=== PATIENT | male | born 2005 | race Caucasian/White ===

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

== ENCOUNTER → 2024-07-23 | Outpatient (CLI) | payer BC, SELFPAY ==
--- NOTE | 2024-07-23 09:28 | RAD_ITS ---
EXAM: XR RIGHT KNEE COMPLETE, 4 OR MORE VIEWS CLINICAL INDICATION: PAIN/ CONTUSION OF KNEE TECHNIQUE: Four or more views of the right knee. COMPARISON: No relevant prior studies available. FINDINGS: BONES/JOINTS: No acute fracture, subluxation or joint effusion. SOFT TISSUES: Normal. No soft tissue swelling or gas. No radiopaque foreign body. RAD/Knee 4 or More Views IMPRESSION: Intact right knee. Electronically Signed: Adan Cameron MD at 10:28 EST ,
== END | disposition home or self-care (01) ==
LOC: MTRAD 09:27
PROVIDERS: PCP Family Medicine; Referring Provider Nurse Practitioner Family; Visit Provider Nurse Practitioner Family
DX: S80.01XA Contusion of right knee, initial encounter (principal)
CPT/HCPCS: 73564

== ENCOUNTER → 2025-02-25 | Outpatient (CLI) | payer BC, SELFPAY ==
[2025-03-02 07:06] LABS: KEPPRA (LEVETIRACETAM) 6.5 ug/mL (10.0-40.0)
== END | disposition home or self-care (01) ==
LOC: MTLAB 16:22
PROVIDERS: PCP Family Medicine; Referring Provider Family Medicine; Visit Provider Family Medicine
DX: G40.909 Epilepsy, unspecified, not intractable, without status epilepticus (principal); Z83.49 Family history of other endocrine, nutritional and metabolic diseases
CPT/HCPCS: 36415; 80177; 84439; 84443

== ENCOUNTER → 2025-04-18 | Outpatient (CLI) | payer BC, SELFPAY ==
[2025-04-18 17:47] LABS: Hematocrit 45.9 % (40-54); Hemoglobin 15.5 g/dL (13.0-16.5); Immature Granulocytes Count 0.050 X10^3/uL (0.0-0.0); Mean Corp Hgb Conc 33.8 g/dL (32-36); Mean Corpuscular Volume 89.1 fL (80-94); Mean Platelet Vol. 10.5 fl (6.2-12.0); NRBC Flagged by Analyzer 0 % (0-5); Platelet Count 248 K/mm3 (150-450); RBC Distribution Width CV 12.0 % (11.6-14.6); RBC Distribution Width SD 39.1 fl (35.1-43.9); Red Blood Count 5.15 M/mm3 (4.6-6.2); White Blood Count 12.5 K/mm3 (4.4-11.0)
--- OUTSIDE RECORDS SUMMARY | 2025-04-18 18:16 | XMS RPT_ITS | CCD ---
Author Organization [facility] ion [facility] Care Team Providers Care Braided Rug Maker Name Role Phone Gerard Gonzalez Unavailable Shahzad Arce Unavailable Unavailable ZIA ESPINOZA Referring Unavailable GERARD GONZALEZ Primary Care Unavailable GERARD GONZALEZ Attending Unavailable Dr. Gerard Gonzalez Primary Care Unavaila Zia Durbin Referring Unavailable Dr. Terrence Carver Attending Unav ailable Gerard Gonzalez MD Primary Care Provider GERARD GONZALEZ Primary Care Unavailable ÁLVARO CASTILLO Attending Unavailable Unavailable Primary Care Provider UnavailChantal Stevenson MD Primary Care Provider [phone] [id number] DANIEL NOLASCO Attending Unavailable DANIEL NOLASCO Referring Unavailable DANIEL NOLASCO Attending Unavailable Dr. Chantal Ball MD Primary Care Provider Dr. Demarco Jimenez DO Attending Provider Dr. Demarco Jimenez DO Referring Provider [phone] Mary Jane Daigle Attending Unavailable Mary Jane Daigle Referring Unavailable Cahntal Ball Primary Care Unavailable Chantal Ball Primary Care Unavailable Demarco Jimenez Attending Unavailable Demarco Jimenez Referring Unavailable Allergies Allergy Classification Reported Allergen(s) Allergy Type Date of Onset Reaction(s) Facility Penicillins (antibiotic) (1 source) Penicillin Drug Allergy Other [facility] (6 sources) Penicillins; Translations: [PENICILLINS] Allergy to substance 2 [facility] (1 source) Penicillins Propensity to adverse reactions 3 [facility] (3 sources) Penicillins Drug Allergy 4 Itching, Rash [facility] (1 source) Penicillins Drug allergy (disorder) 2 [facility] Repository Medications Current Medications Medication Drug Class(es) Dates Sig (Normalized) Sig (Original) levETIRAcetam 500 mg oral tablet (4 sources) Start: 09-12-2023 End: 09-06-2024 take 1 tablet by mouth in the morning levETIRAcetam (Keppra) 500 MG tablet Indications: Partial symptomatic epilepsy with complex partial seizures, not intractable, without status epilepticus (CMS/HCC) Take 1 tablet (500 mg) by mouth in the morning and 1 tablet (500 mg) before bedtime. 180 tablet 3 09/12/2023 09/06/2024 Active take 1 tablet by mouth twice jimmy ly levETIRAcetam (Keppra) 500 mg tablet Take 1 tablet (500 mg) by mouth 2 times a day. 0 Active vitamin b12 0.5 mg oral tablet (1 source) Vitamin B12 take 1 tablet by mouth once daily in the morning cyanocobalamin (Vitamin B-12) 500 mcg tablet Take 1 tablet (500 mcg) by mouth once daily in the morning. 0 Active Completed/Discontinued Medications Medication Drug Class(es) Dates Sig (Normalized) Sig (Original) iohexol (OMNIPaque) 350 mg iodine/mL solution 69 mL (1 source) Start: 07-11-2023 End: 07-11-2023 iohexol (OMNIPaque) 350 mg iodine/mL solution 69 mL 1000 ml sodium chloride 9 mg/ml injection (1 source) Start: 07-11-2023 End: 07-11-2023 sodium chloride 0.9 % bolus 1,000 mL NEGATED: Highlighted row has not occurred!No Current Medications (1 source) No Current Medications Problems Active Problems Problem Classification Problem Date Documented Da te Episodic/Chronic Epilepsy; convulsions (6 sources) Partial epilepsy with impairment of consciousness; Translations: [Localization-relat ed (focal) (partial) symptomatic epilepsy and epileptic syndromes with complex partial seizures, not intractable, without status epilepticus] Onset: 07-05-2023 07-05-2023 Chronic Epilepsy; convulsions (2 sources) Unspecified convulsions; Translations: [Unspecified convulsions] Onset: 04-29-2022 Episodic Other lower respiratory disease (1 source) Nodule of lung; Translations: [Solitary pulmonary nodule] 07-11-2023 Episodic Residual codes; unclassified (2 sources) Obstructive sleep apnea (adult) (pediatric); Translations: [Obstructive sleep apnea (adult) (pediatric)] Onset: 06-01-2022 Chronic Residual codes; unclassified (5 sources) Transient alteration of awareness; Translations: [Transient alteration of awareness] 05-03-2022 Episodic Unclassified (2 sources) SPORT PHYSICAL 03-08-2021 Comment on above: SPORT PHYSICAL Past or Other Problems Problem Classification Problem Date Documented Da te Episodic/Chronic Other lower respiratory disease (2 sources) Solitary pulmonary nodule; Translations: [Solitary pulmonary nodule] Onset: 07-11-2023 Episodic Superficial injury; contusion (9 sources) Abrasion of lip, initial encounter; Translations: [Abrasion of lip] Onset: 07-11-2023 05-03-2022 Episodic Syncope (3 sources) Syncope and collapse; Translations: [Syncope and collapse] Onset: 07-11-2023 07-11-2023 Episodic Results Test Name Value Interpretation Reference Range Facility KEPPRA (LEVETIRACETAM)on KEPPRA 6.5 ug/mL Abnormal 10.0-40.0 [facility] Comment on above: Result Comment: Perf ormed at: - [facility] [address] [id number] Experience Specialist: Hardeep La MD, Phone: [phone] Performed By: #### L [id number], L3310.0000, L506.0400 #### [facility] [address] [place], [place] [address], [place], [address] LevetiracetamOrdered By: Jackie Jimenez on 02-25-2025 levETIRAcetam [Mass/Vol] 6.5 ug/mL Low 10.0-40.0 [facility] Comment on above: Performed at: BN - [facility] [address] [id number] Director: Hardeep La MD, Phone: [phone] T4 Free Directon 02-25-2025 T4 FREE DIRECT 1.20 ng/dL Normal 0.76-1.46 [facility] Comment on above: Performed By: #### L 501.9520, L3310.0000, L506.0400 #### [facility] [address] [place], [address] T4 freeOrdered By: Demarco craft on 02-25-2025 Free T4 [Mass/Vol] 1.20 ng/dL 0.76-1.46 [facility] TSH DL <= 0.005 mIU/L QnOrde red By: Demarco Jimenez on 02-25-2025 TSH Qn 1.290 uIU/mL 0.300-4.200 [facility] Thyroid Stim Hormone (TSH)on 02-25-2025 TSH 1.290 uIU/mL Normal 0.300-4.200 [facility] Comment on above: Performed By: #### L 501.9520, L3310.0000, L506.0400 #### [facility] [address] [facility] [place], [address] Knee 4 or More Viewson 07-23 Knee 4 or More Views [facility] Services [address] [place] [address] Knee 4 or More Views MR#: [id number] Acct: [id number] Name: HUBERT DONNELLY Rep #: [id number] : 2005 M 19 From: Adan Cameron MD PCP: Dr. Chantal Ball MD Status: REG CLI Study: Knee 4 or More Views Date of Exam: 07/23/24 Exam# [id number] Ordering Dr: Mary Jane Daigle FIBER ANALYST- Jania [id number] EXAM: XR RIGHT KNEE COMPLETE, 4 OR MORE VIEWS CLINICAL INDICATION: PAIN/ CONTUSION OF KNEE TECHNIQUE: Four or more views of the right knee. COMPARISON: No relevant prior studies available. FINDINGS: BONES/JOINTS: No acute fracture, subluxation or joint effusion. SOFT TISSUES: Normal. No soft tissue swelling or gas. No radiopaque foreign body. RAD/Knee 4 or More Views IMPRESSION: Intact right knee. Electronically Signed: Adan Cameron MD at 10:28 EST , CC: PRATIMA Daigle; Dr. Chantal Ball MD Bench Examiner: Signed Normal [facility] Absolute lymphocyte countOrd ered By: Lilian Harsh on 08-11-2023 Lymphocytes Auto (Unsp spec) [#/Vol] 2.58 10*3/uL 0.83-4.51 [facility] Basophil percentageOrdered B y: Liliankindra House on 08-11-2023 Basophils/100 WBC (Bld) 0.6 % 0-1 [facility] Bilirubin [Mass/Vol] 0.40 mg/dL 0.20-1.[address] [facility] Comment on above: For patients on eltr ombopag therapy, use of Dimension [place] TBIL is not recommended. Chloride [Moles/Vol] 109 mmol/L 98-[address] [facility] Eosinophils/100 WBC (Bld) 3.3 % 0-5 [facility] Glucose [Mass/Vol] 84 mg/dL 74-106 [facility] Neutrophils (Bld) [#/Vol] 9.4 10*3/uL 2.0-7.7 [facility] Neutrophils/100 WBC (Bld) 68.4 % 47-70 [facility] Potassium [Moles/Vol] 4.2 mmol/L 3.5-5.1 [facility] Protein [Mass/Vol] 7.9 g/dL 6.4-8.2 [facility] Sodium [Moles/Vol] 140 mmol/L 136-145 [facility] WBC (Bld) [#/Vol] 13.7 10*3/uL 4.4-11.0 [facility] Blood erythrocytes count (nu mber/volume)Ordered By: Lilian House on 08-11-2023 RBC (Bld) [#/Vol] 5.03 10*6/uL 4.6-6.2 [facility] Blood hemoglobin measurement (mass/volume)Ordered By: Liliankindra House on 08-11-2023 Hemoglobin (Bld) [Mass/Vol] 14.9 g/dL 13.0-16.5 [facility] Blood lymphocytes/100 leukoc ytesOrdered By: Liliankindra House on 08-11-2023 Lymphocytes/100 WBC (Bld) 18.9 % 19-41 [facility] Blood monocytes/100 leukocyt esOrdered By: Pepperell Harsh on 08-11-2023 Monocytes/100 WBC (Bld) 8.4 % 0-10 [facility] Blood platelet mean volumeOr dered By: Liliankindra House on 08-11-2023 Platelet mean volume (Bld) [Entitic vol] 11.3 fL 6.2-12.0 [facility] Determination of erythrocyte mean corpuscular volume (MCV)Ordered By: Liliankindra House on 08-11-2023 MCV (RBC) [Entitic vol] 92.0 fL 80-94 [facility] Hematocrit Auto (Bld) [Volum e fraction]Ordered By: Pepperell Harsh on 08-11-2023 Hematocrit (Bld) [Volume fraction] 46.3 % 40-54 [facility] Laboratory - Chemistry and C hemistry - challengeOrdered By: Pepperell Harsh on 08-11-2023 ALP [Catalytic activity/Vol] 115 U/L 45-117 [facility] ALT [Catalytic activity/Vol] 31 U/L 16-61 [facility] CO2 [Moles/Vol] 27.0 mmol/L 21.0-32.0 [facility] Free T4 [Mass/Vol] 1.05 ng/dL 0.76-1.46 [facility] Globulin (S) [Mass/Vol] 4.3 g/dL 2.2-4.2 [facility] Urea nitrogen/Creatinine [Mass ratio] 15.1 mg/mg 10-20 [facility] Laboratory - Hematology and Cell countsOrdered By: Pepperell Harsh on 08-11-2023 Erythrocyte distribution width (RBC) [Entitic vol] 42.8 fL 35.1-43.9 [facility] Erythrocyte distribution width (RBC) [Ratio] 12.7 % 11.6-14.6 [facility] Immature granulocytes/100 WBC (Bld) 0.400 % 0.0-0.9 [facility] Comment on above: IG% - Immature Granu locytes (promyelocytes, myelocytes and metamyelocytes) > 1% indicates that a LEFT SHIFT is Present. MCH (RBC) [Entitic mass] 29.6 pg 27.0-32.0 [facility] Nucleated RBC/100 WBC (Bld) [Ratio] 0 % 0-5 [facility] MCHC Auto (RBC) [Mass/Vol]Or dered By: Lilian House on 08-11-2023 MCHC (RBC) [Mass/Vol] 32.2 g/dL 32-36 [facility] No Panel InformationOrdered By: Lilian House on 08-11-2023 Estimated GFR (MDRD) Amer 94 mL/min >60 [facility] Comment on above: GFR Calc Estimated GFR (MDRD) Non-Af Amer 78 mL/min >60 [facility] Comment on above: Non- GFR Calc Thyroid Stimulating Hormone (TSH) 1.71 uIU/mL 0.358-3.74 [facility] Platelets bldOrdered By: Navdeep House on 08-11-2023 Platelets (Bld) [#/Vol] 228 10*3/uL 150-450 [facility] Serum or plasma albumin brandon urement (mass/volume)Ordered By: Lilian House on 08-11-2023 Albumin [Mass/Vol] 3.6 g/dL 3.2-5.0 [facility] Serum or plasma albumin/glob ulin mass ratioOrdered By: Lilian House on 08-11-2023 Albumin/Globulin [Mass ratio] 0.8 {ratio} 0.9-2.4 [facility] Serum or plasma calcium brandon urement (mass/volume)Ordered By: Lilian House on 08-11-2023 Calcium [Mass/Vol] 9.0 mg/dL 8.5-10.1 [facility] Serum or plasma creatinine m easurement (mass/volume)Ordered By: Lilian House on 08-11-2023 Creatinine [Mass/Vol] 1.26 mg/dL 0.70-1.30 [facility] Comment on above: The validity of the calculated GFR & GFRAA in patients over 70 years has not been determined. Clinical correlation is essential. Serum or plasma urea nitroge n measurement (mass/volume)Ordered By: Lilian House on 08-11-2023 Urea nitrogen [Mass/Vol] 19 mg/dL 7-18 [facility] Thin prep Papanicolaou smear with manual screeningOrdered By: Lilian House on 08-11-2023 Thin prep Papanicolaou smear with manual screening 18 U/L 15-37 [facility] Thin prep Papanicolaou smear with manual screening 4 5-15 [facility] Basic metabolic 2000 panelon 07-11-2023 Anion gap [Moles/Vol] 12 mmol/L 10 - 2 0 mmol/L [facility] Calcium [Mass/Vol] 9.2 mg/dL 8.6 - 10. 3 mg/dL [facility] Chloride [Moles/Vol] 107 mmol/L 98 - 10 7 mmol/L [facility] CO2 [Moles/Vol] 23 mmol/L 21 - 32 mmol/L [facility] Creatinine [Mass/Vol] 1.08 mg/dL 0.50 - 1.30 mg/dL [facility] GFR/1.73 sq M.predicted MDRD (S/P/Bld) [Vol rate/Area] - PINF [facility] Comment on above: Calculations of danielle mated GFR are performed using the 2020 CKD-EPI Study Refit equation without the race variable for the IDMS-Traceable creatinine methods. https://jasn.asnjournals.org/content///ASN.616 1423232 Glucose [Mass/Vol] 99 mg/dL 74 - 99 mg/dL [facility] Interpretation and review of laboratory results Normal [facility] Potassium [Moles/Vol] 4.6 mmol/L 3.5 - 5.3 mmol/L [facility] Sodium [Moles/Vol] 137 mmol/L 136 - 145 mmol/L [facility] Urea nitrogen [Mass/Vol] 14 mg/dL 6 - 23 mg/d L [facility] Anion gap [Moles/Vol] 12 mmol/L Normal 10-20 [facility] Comment on above: Performed By: #### 2 4321-2 #### EUGENE CRUZ (35355) [facility] ([facility]) [facility] [place] [address] Calcium [Mass/Vol] 9.2 mg/dL Normal 8.6-10.3 [facility] Comment on above: Performed By: #### 2 4321-2 #### EUGENE CRUZ (71179) [facility] ([facility]) [address] [place] [address] Chloride [Moles/Vol] 107 mmol/L Normal 98-107 [facility] Comment on above: Performed By: #### 2 4321-2 #### EUGENE CRUZ (81885) [facility] ([facility]) [address] [place] [address] CO2 [Moles/Vol] 23 mmol/L Normal 21-32 [facility] Comment on above: Performed By: #### 2 4321-2 #### EUGENE CRUZ (19863) [facility] ([facility]) [address] [place] [address] Creatinine [Mass/Vol] 1.08 mg/dL Normal 0.50-1.30 [facility] Comment on above: Performed By: #### 2 4321-2 #### EUGENE CRUZ (37335) [facility] ([facility]) [address] [place] [address] GFR/1.73 sq M.predicted MDRD (S/P/Bld) [Vol rate/Area] mL/min/{1.73_m2} Normal >60 [facility] Comment on above: Result Comment: Calc ulations of estimated GFR are performed using the 2020 CKD-EPI Study Refit equation without the race variable for the IDMS-Traceable creatinine methods. https://jasn.asnjournals.org/content//ASN.628 3888248 Performed By: #### 2 4321-2 #### EUGENE CRUZ (56957) [facility] ([facility]) [address] [place] [address] Glucose [Mass/Vol] 99 mg/dL Normal 74-99 [facility] Comment on above: Performed By: #### 2 4321-2 #### EUGENE CRUZ (51499) [facility] ([facility]) [address] [place] [address]83 Potassium [Moles/Vol] 4.6 mmol/L Normal 3.5-5.3 [facility] Comment on above: Performed By: #### 2 4321-2 #### EUGENE CRUZ (76204) [facility] ([facility]) [address] [place], [place] [address] Sodium [Moles/Vol] 137 mmol/L Normal 136-145 [facility] Comment on above: Performed By: #### 2 4321-2 #### EUGENE CRUZ (77582) [facility] ([facility]) [address] [place] [address]67[address] Urea nitrogen [Mass/Vol] 14 mg/dL Normal 6-23 [facility] Comment on above: Performed By: #### 2 4321-2 #### EUGENE CRUZ (11754) [facility] ([facility]) [address] [place] [address]95 CBC W Auto Differential pane l (Bld)on 07-11-2023 Basophils (Bld) [#/Vol] 0.04 10*3/uL [facility] Basophils/100 WBC (Bld) 0.3 % 0.0 - 2.0 % [facility] Eosinophils (Bld) [#/Vol] 0.18 10*3/uL [facility] Eosinophils/100 WBC (Bld) 1.2 % 0.0 - 6.0 % [facility] Erythrocyte distribution width (RBC) [Ratio] 12.2 % 11.5 - 14.5 % [facility] Hematocrit (Bld) [Volume fraction] 45.3 % 41.0 - 52.0 % [facility] Hemoglobin (Bld) [Mass/Vol] 15.3 g/dL 13.5 - 17.5 g/dL [facility] Immature granulocytes (Bld) [#/Vol] 0.04 10*3/uL [facility] Immature granulocytes/100 WBC (Bld) 0.3 % 0.0 - 0.9 % [facility] Comment on above: Immature Granulocyte Count (IG) includes promyelocytes, myelocytes and metamyelocytes but does not include bands. Percent differential counts (%) should be interpreted in the context of the absolute cell counts (cells/UL). Interpretation and review of laboratory results Abnormal [facility] Lymphocytes (Bld) [#/Vol] 1.16 10*3/uL Low [facility] Lymphocytes/100 WBC (Bld) 7.7 % 13.0 - 44.0 % [facility] MCH (RBC) [Entitic mass] 30.1 pg 26. 0 - 34.0 pg [facility] MCHC (RBC) [Mass/Vol] 33.8 g/dL 32.0 - 36.0 g/dL [facility] MCV (RBC) [Entitic vol] 89 fL 80 - 100 fL [facility] Monocytes (Bld) [#/Vol] 0.92 10*3/uL [facility] Monocytes/100 WBC (Bld) 6.1 % 2.0 - 10.0 % [facility] Neutrophils (Bld) [#/Vol] 12.68 10*3/uL High [facility] Comment on above: Percent differential counts (%) should be interpreted in the context of the absolute cell counts (cells/uL). Neutrophils/100 WBC (Bld) 84.4 % 40.0 - 80.0 % [facility] Nucleated RBC/100 WBC (Bld) [Ratio] 0.0 % [facility] Platelets (Bld) [#/Vol] 183 10*3/uL [facility] RBC (Bld) [#/Vol] 5.08 10*6/uL Un[facility] WBC (Bld) [#/Vol] 15.0 10*3/uL High [facility] Basophils (Bld) [#/Vol] 0.04 x10*3/uL Normal 0.00-0.10 [facility] Comment on above: Performed By: #### 5 7021-8 #### EUGENE CRUZ (42857) [facility] ([facility]) [address] [place] [address]22 Basophils/100 WBC (Bld) 0.3 % Normal 0.0-2.0 [facility] Comment on above: Performed By: #### 5 7021-8 #### EUGENE CRUZ (35533) [facility] ([facility]) [address] [place] [address] 16975 Eosinophils (Bld) [#/Vol] 0.18 x10*3/uL Normal 0.00-0.70 [facility] Comment on above: Performed By: #### 5 7021-8 #### EUGENE CRUZ (44139) [facility] ([facility]) [address] [place] [address] 80690 Eosinophils/100 WBC (Bld) 1.2 % Normal 0.0-6.0 [facility] Comment on above: Performed By: #### 7021-8 #### EUGENE CRUZ (61441) [facility] ([facility]) [address] [place] [address]29 Erythrocyte distribution width (RBC) [Ratio] 12.2 % Normal 11.5-14.5 [facility] Comment on above: Performed By: #### 5 7021-8 #### EUGENE CRUZ (24478) [facility] ([facility]) [address] [place] [address]378 Hematocrit (Bld) [Volume fraction] 45.3 % Normal 41.0-52.0 [facility] Comment on above: Performed By: #### 5 7021-8 #### EUGENE CRUZ (23025) [facility] ([facility]) [address] [place] [address] 79649 Hemoglobin (Bld) [Mass/Vol] 15.3 g/dL Normal 13.5-17.5 [facility] Comment on above: Performed By: #### 7021-8 #### EUGENE CRUZ (47400) [facility] ([facility]) [address] [place] [address] 08997 Immature granulocytes (Bld) [#/Vol] 0.04 x10*3/uL Normal 0.00-0.70 [facility] Comment on above: Performed By: #### 5 7021-8 #### EUGENE CRUZ (57982) [facility] ([facility]) [address] [place] [address]87 Immature granulocytes/100 WBC (Bld) 0.3 % Normal 0.0-0.9 [facility] Comment on above: Result Comment: Amairani ture Granulocyte Count (IG) includes promyelocytes, myelocytes and metamyelocytes but does not include bands. Percent differential counts (%) should be interpreted in the context of the absolute cell counts (cells/UL). Performed By: #### 5 7021-8 #### EUGENE CRUZ (93048) [facility] ([facility]) [address] [place] [address]654 Lymphocytes (Bld) [#/Vol] 1.16 x10*3/uL Low 1.20-4.80 [facility] Comment on above: Performed By: #### 5 7021-8 #### EUGENE CRUZ (97197) [facility] ([facility]) [address] [place] [address] 07137 Lymphocytes/100 WBC (Bld) 7.7 % Normal 13.0-44.0 [facility] Comment on above: Performed By: #### 5 7021-8 #### EUGENE CRUZ (80910) [facility] ([facility]) [address] [place] [address] 87580 MCH (RBC) [Entitic mass] 30.1 pg Normal 26.0-34.0 [facility] Comment on above: Performed By: #### 5 7021-8 #### EUGENE CRUZ (52543) [facility] ([facility]) [address] [place] [address] 63328 MCHC (RBC) [Mass/Vol] 33.8 g/dL Normal 32.0-36.0 [facility] Comment on above: Performed By: #### 5 7021-8 #### EUGENE CRUZ (41466) [facility] ([facility]) [address] [place] [address] 93452 MCV (RBC) [Entitic vol] 89 fL Normal 80-100 [facility] Comment on above: Performed By: #### 5 7021-8 #### EUGENE CRUZ (47956) [facility] ([facility]) [address] [place] [address] 20494 Monocytes (Bld) [#/Vol] 0.92 x10*3/uL Normal 0.10-1.00 [facility] Comment on above: Performed By: #### 5 7021-8 #### EUGENE CRUZ (18182) [facility] ([facility]) [address] [place] [address] 22238 Monocytes/100 WBC (Bld) 6.1 % Normal 2.0-10.0 [facility] Comment on above: Performed By: #### 5 7021-8 #### EUGENE CRUZ (37203) [facility] ([facility]) [address] [place] [address] 70152 Neutrophils (Bld) [#/Vol] 12.68 x10*3/uL High 1.20-7.70 [facility] Comment on above: Result Comment: Perc ent differential counts (%) should be interpreted in the context of the absolute cell counts (cells/uL). Performed By: #### 5 7021-8 #### EUGENE CRUZ (65183) [facility] ([facility]) [address] [place] [address] 69458 Neutrophils/100 WBC (Bld) 84.4 % Normal 40.0-80.0 [facility] Comment on above: Performed By: #### 5 7021-8 #### EUGENE CRUZ (40593) [facility] ([facility]) [address] [place] [address] 96775 Nucleated RBC/100 WBC (Bld) [Ratio] 0.0 /100 WBCs Normal 0.0-0.0 [facility] Comment on above: Performed By: #### 5 7021-8 #### EUGENE CRUZ (82595) [facility] ([facility]) [address] [place] [address] Platelets (Bld) [#/Vol] 183 x10*3/uL Normal 150-450 [facility] Comment on above: Performed By: #### 5 7021-8 #### EUGENE CRUZ (18018) [facility] ([facility]) [address] [place] [address] RBC (Bld) [#/Vol] 5.08 x10*6/uL Normal 4.50-5.90 [facility] Comment on above: Performed By: #### 5 7021-8 #### EUGENE CRUZ ([id number]) [facility] ([facility]) [address] [place] [address] WBC (Bld) [#/Vol] 15.0 x10*3/uL High 4.4-11.3 [facility] Comment on above: Performed By: #### 5 7021-8 #### EUGENE CRUZ ([id number]) [facility] ([facility]) [address] [place] [address] CT ANGIO CHEST FOR PULMONARY EMBOLISMon 07-11-2023 CT ANGIO CHEST FOR PULMONARY EMBOLISM Interpreted By: Randy Lockwood, STUDY: CT ANGIO CHEST FOR PULMONARY EMBOLISM; 07/11/2023 10:50 am INDICATION: Signs/Symptoms:synco pe/tachycardia. COMPARISON: None. ACCESSION NUMBER(S): [id number] ORDERING CLINICIAN: ÁLVARO CASTILLO TECHNIQUE: Helical data acquisition of the chest was obtained after IV injection of 69 ml of Omnipaque 350. Images were reformatted in axial, coronal, and sagittal planes. 3D reconstructed MIPS volumetric images were also generated at an independent workstation and reviewed. FINDINGS: POTENTIAL LIMITATIONS OF THE STUDY: None HEART AND VESSELS: No discrete filling defects within the main pulmonary artery or its branches. The thoracic aorta is of normal course and caliber without aneurysm, dissection or significant atherosclerotic calcification. No coronary artery calcifications are seen. The study is not optimized for evaluation of coronary arteries. The cardiac chambers are not enlarged. MEDIASTINUM AND FUNMILAYO, LOWER NECK AND AXILLA: The visualized thyroid gland is within normal limits, the esophagus appears unremarkable. No evidence of thoracic lymphadenopathy by CT criteria. LUNGS AND AIRWAYS: A 4 mm right perifissural nodule on image 60 of series 4 is probably an intrapulmonary node. No further follow-up is required, however, if the patient has high risk factors for primary lung malignancy, follow-up noncontrast CT scan chest in 12 months may be obtained. (Scar Dozier et al., Guidelines for management of incidental pulmonary nodules detected on CT images: From the Fleischner Society 2017, Radiology. 2017 Jj;284 (1):228-243.) FLEISCHNER.ACR.IF.1. The lungs otherwise are clear. No pleural effusion. UPPER ABDOMEN AND OTHER FINDINGS: The visualized subdiaphragmatic structures demonstrate no remarkable findings. CHEST WALL AND OSSEOUS STRUCTURES: There are no suspicious osseous lesions. IMPRESSION: 1. No evidence of pulmonary embolus, aneurysm or dissection. 2. Right perifissural nodule as described. The lungs otherwise are clear. Signed by: Randy Lockwood 07/11/2023 11:31 AM Dictation workstation: [id number] [facility] CT CERVICAL SPINE WO IV CONT RASTon 07-11-2023 CT CERVICAL SPINE WO IV CONTRAST Interpreted By: Kurtis Paz, STUDY: CT CERVICAL SPINE WO IV CONTRAST; 07/11/2023 10:50 am INDICATION: Signs/Symptoms:traum a. Pain COMPARISON: None. ACCESSION NUMBER(S): [id number] ORDERING CLINICIAN: ÁLVARO CASTILLO TECHNIQUE: Axial CT images of the cervical spine are obtained. Axial, coronal and sagittal reconstructions are provided for review. FINDINGS: There is no acute fracture or traumatic subluxation in the cervical spine. Subacute to old nondisplaced fracture at the tip of the spinous process of T1 is seen. Prevertebral soft tissues are unremarkable. There is no apical pneumothorax. IMPRESSION: No evidence for an acute fracture or subluxation of the cervical spine. MACRO: None Signed by: Kurtis Paz 07/11/2023 11:45 AM Dictation workstation: [id number] [facility] CT Cervical spine WO contras ton 07-11-2023 No evidence for an acute fracture or subluxation of the cervical spine. MACRO: None Signed by: Kurtis Paz 07/11/2023 11:45 AM Dictation workstation: [id number] Interpreted By: Kurtis Paz, STUDY: CT CERVICAL SPINE WO IV CONTRAST; 07/11/2023 10:50 am INDICATION: Signs/Symptoms:traum a. Pain COMPARISON: None. ACCESSION NUMBER(S): [id number] ORDERING CLINICIAN: ÁLVARO CASTILLO TECHNIQUE: Axial CT images of the cervical spine are obtained. Axial, coronal and sagittal reconstructions are provided for review. FINDINGS: There is no acute fracture or traumatic subluxation in the cervical spine. Subacute to old nondisplaced fracture at the tip of the spinous process of T1 is seen. Prevertebral soft tissues are unremarkable. There is no apical pneumothorax. MMKurtis Dykes MD - 07/11/2023 Interpreted By: Kurtis Paz, STUDY: CT CERVICAL SPINE WO IV CONTRAST; 07/11/2023 10:50 am INDICATION: Signs/Symptoms:traum a. Pain COMPARISON: None. ACCESSION NUMBER(S): [id number] ORDERING CLINICIAN: ÁLVARO CASTILLO TECHNIQUE: Axial CT images of the cervical spine are obtained. Axial, coronal and sagittal reconstructions are provided for review. FINDINGS: There is no acute fracture or traumatic subluxation in the cervical spine. Subacute to old nondisplaced fracture at the tip of the spinous process of T1 is seen. Prevertebral soft tissues are unremarkable. There is no apical pneumothorax. IMPRESSION: No evidence for an acute fracture or subluxation of the cervical spine. MACRO: None Signed by: Kurtis Paz 07/11/2023 11:45 AM Dictation workstation: [id number] [facility] Work Phone: CT Cervical spine WO contras tOrdered By: Kurtis Paz on 07-11-2023 [facility] Work Phone: CT Chest W contrast IV and C T angiogram Pulmonary arteries for pulmonary embolus W contrast Diana 07-11-2023 1. No evidence of pulmonary embolus, aneurysm or dissection. 2. Right perifissural nodule as described. The lungs otherwise are clear. Signed by: Randy Lockwood 07/11/2023 11:31 AM Dictation workstation: [id number] [facility] Interpreted By: Randy Lockwood, STUDY: CT ANGIO CHEST FOR PULMONARY EMBOLISM; 07/11/2023 10:50 am INDICATION: Signs/Symptoms:synco pe/tachycardia. COMPARISON: None. ACCESSION NUMBER(S): [id number] ORDERING CLINICIAN: ÁLVARO CASTILLO TECHNIQUE: Helical data acquisition of the chest was obtained after IV injection of 69 ml of Omnipaque 350. Images were reformatted in axial, coronal, and sagittal planes. 3D reconstructed MIPS volumetric images were also generated at an independent workstation and reviewed. FINDINGS: POTENTIAL LIMITATIONS OF THE STUDY: None HEART AND VESSELS: No discrete filling defects within the main pulmonary artery or its branches. The thoracic aorta is of normal course and caliber without aneurysm, dissection or significant atherosclerotic calcification. No coronary artery calcifications are seen. The study is not optimized for evaluation of coronary arteries. The cardiac chambers are not enlarged. MEDIASTINUM AND FUNMILAYO, LOWER NECK AND AXILLA: The visualized thyroid gland is within normal limits, the esophagus appears unremarkable. No evidence of thoracic lymphadenopathy by CT criteria. LUNGS AND AIRWAYS: A 4 mm right perifissural nodule on image 60 of series 4 is probably an intrapulmonary node. No further follow-up is required, however, if the patient has high risk factors for primary lung malignancy, follow-up noncontrast CT scan chest in 12 months may be obtained. (Scar MacMahon et al., Guidelines for management of incidental pulmonary nodules detected on CT images: From the Fleischner Society 2017, Radiology. 2017 Jj;284 (1):228-243.) FLEISCHNER.ACR.IF.1. The lungs otherwise are clear. No pleural effusion. UPPER ABDOMEN AND OTHER FINDINGS: The visualized subdiaphragmatic structures demonstrate no remarkable findings. CHEST WALL AND OSSEOUS STRUCTURES: There are no suspicious osseous lesions. [facility] Randy Lockwood MD - 07/11/2023 Interpreted By: Randy Lockwood, STUDY: CT ANGIO CHEST FOR PULMONARY EMBOLISM; 07/11/2023 10:50 am INDICATION: Signs/Symptoms:synco pe/tachycardia. COMPARISON: None. ACCESSION NUMBER(S): [id number] ORDERING CLINICIAN: ÁLVARO CASTILLO TECHNIQUE: Helical data acquisition of the chest was obtained after IV injection of 69 ml of Omnipaque 350. Images were reformatted in axial, coronal, and sagittal planes. 3D reconstructed MIPS volumetric images were also generated at an independent workstation and reviewed. FINDINGS: POTENTIAL LIMITATIONS OF THE STUDY: None HEART AND VESSELS: No discrete filling defects within the main pulmonary artery or its branches. The thoracic aorta is of normal course and caliber without aneurysm, dissection or significant atherosclerotic calcification. No coronary artery calcifications are seen. The study is not optimized for evaluation of coronary arteries. The cardiac chambers are not enlarged. MEDIASTINUM AND FUNMILAYO, LOWER NECK AND AXILLA: The visualized thyroid gland is within normal limits, the esophagus appears unremarkable. No evidence of thoracic lymphadenopathy by CT criteria. LUNGS AND AIRWAYS: A 4 mm right perifissural nodule on image 60 of series 4 is probably an intrapulmonary node. No further follow-up is required, however, if the patient has high risk factors for primary lung malignancy, follow-up noncontrast CT scan chest in 12 months may be obtained. (Scar Maierhoalan et al., Guidelines for management of incidental pulmonary nodules detected on CT images: From the Fleischner Society 2017, Radiology. 2017 Jj;284 (1):228-243.) FLEISCHNER.ACR.IF.1. The lungs otherwise are clear. No pleural effusion. UPPER ABDOMEN AND OTHER FINDINGS: The visualized subdiaphragmatic structures demonstrate no remarkable findings. CHEST WALL AND OSSEOUS STRUCTURES: There are no suspicious osseous lesions. IMPRESSION: 1. No evidence of pulmonary embolus, aneurysm or dissection. 2. Right perifissural nodule as described. The lungs otherwise are clear. Signed by: Randy Lockwood 07/11/2023 11:31 AM Dictation workstation: [id number] [facility] Work Phone: [facility] Work Phone: CT HEAD WO IV CONTRASTon CT HEAD WO IV CONTRAST Interpreted By: Randy Lockwood, STUDY: CT HEAD WO IV CONTRAST; 07/11/2023 10:50 am INDICATION: Signs/Symptoms:traum a. COMPARISON: None. ACCESSION NUMBER(S): [id number] ORDERING CLINICIAN: ÁLVARO CASTILLO TECHNIQUE: Sequential trans axial images were obtained . FINDINGS: INTRACRANIAL: CORTICAL SULCI AND EXTRA-AXIAL SPACES: Unremarkable. VENTRICULAR SYSTEM: Unremarkable without significant dilatation. CEREBRAL PARENCHYMA: Unremarkable without significant degenerative change.There is no evidence of definite subacute infarction, intracranial hemorrhage or mass. EXTRACRANIAL: There is a small air-fluid level within the left maxillary air cell with 1.5 cm mucous retention cyst or polyp medially indicating mild sinusitis. The calvarium is intact. IMPRESSION: Unremarkable exam. Signed by: Randy Lockwood 07/11/2023 11:34 AM Dictation workstation: [id number] [facility] CT Head WO contraston 2022 Unremarkable exam. Signed by: Randy Lockwood 07/11/2023 11:34 AM Dictation workstation: [id number] MMODAL Interpreted By: Randy Lockwood, STUDY: CT HEAD WO IV CONTRAST; 07/11/2023 10:50 am INDICATION: Signs/Symptoms:traum a. COMPARISON: None. ACCESSION NUMBER(S): [id number] ORDERING CLINICIAN: ÁLVARO CASTILLO TECHNIQUE: Sequential trans axial images were obtained . FINDINGS: INTRACRANIAL: CORTICAL SULCI AND EXTRA-AXIAL SPACES: Unremarkable. VENTRICULAR SYSTEM: Unremarkable without significant dilatation. CEREBRAL PARENCHYMA: Unremarkable without significant degenerative change.There is no evidence of definite subacute infarction, intracranial hemorrhage or mass. EXTRACRANIAL: There is a small air-fluid level within the left maxillary air cell with 1.5 cm mucous retention cyst or polyp medially indicating mild sinusitis. The calvarium is intact. MMODAL Randy Lockwood MD - 07/11/2023 Interpreted By: Randy Lockwood, STUDY: CT HEAD WO IV CONTRAST; 07/11/2023 10:50 am INDICATION: Signs/Symptoms:traum a. COMPARISON: None. ACCESSION NUMBER(S): [id number] ORDERING CLINICIAN: ÁLVARO CASTILLO TECHNIQUE: Sequential trans axial images were obtained . FINDINGS: INTRACRANIAL: CORTICAL SULCI AND EXTRA-AXIAL SPACES: Unremarkable. VENTRICULAR SYSTEM: Unremarkable without significant dilatation. CEREBRAL PARENCHYMA: Unremarkable without significant degenerative change.There is no evidence of definite subacute infarction, intracranial hemorrhage or mass. EXTRACRANIAL: There is a small air-fluid level within the left maxillary air cell with 1.5 cm mucous retention cyst or polyp medially indicating mild sinusitis. The calvarium is intact. IMPRESSION: Unremarkable exam. Signed by: Randy Lockwood 07/11/2023 11:34 AM Dictation workstation: [id number] [facility] Work Phone: CT Head WO contrastOrdered B y: Randy Lockwood on 07-11-2023 [facility] Work Phone: No Panel Informationon 07-11 Radiology Study observation (narrative) [facility] Work Phone: SARS coronavirus 2 RNAon SARS-CoV-2 (COVID-19) RNA ANTONETTE+probe Ql (Resp) Not detected Normal Not Detected [facility] Comment on above: Order Comment: This assay has received FDA Emergency Use Authorization (EUA) and is only authorized for the duration of time that circumstances exist to justify the authorization of the emergency use of in vitro diagnostic tests for the detection of SARS-CoV-2 virus and/or diagnosis of COVID-19 infection under section 564(b)(1) of the Act, 21 U.S.C. 360bbb-3(b)(1). This assay is an in vitro diagnostic nucleic acid amplification test for the qualitative detection of SARS-CoV-2 from nasopharyngeal specimens and has been validated for use at [facility]. Negative results do not preclude COVID-19 infections and should not be used as the sole basis for diagnosis, treatment, or other management decisions. Performed By: #### 9 [id number] #### KNIGHT NANCY ([id number]) [facility] ([facility]) [address] [place] [address] SARS-CoV-2 (COVID-19) RNA NA A+probe Ql (Resp)on 07-11-2023 Interpretation and review of laboratory results Normal [facility] This assay has received FDA Emergency Use Authorization (EUA) and is only authorized for the duration of time that circumstances exist to justify the authorization of the emergency use of in vitro diagnostic tests for the detection of SARS-CoV-2 virus and/or diagnosis of COVID-19 infection under section 564(b)(1) of the Act, 21 U.S.C. 360bbb-3(b)(1). This assay is an in vitro diagnostic nucleic acid amplification test for the qualitative detection of SARS-CoV-2 from nasopharyngeal specimens and has been validated for use at [facility]. Negative results do not preclude COVID-19 infections and should not be used as the sole basis for diagnosis, treatment, or other management decisions. [facility] SARS-CoV-2 RT PCRon 07-11-20 23 SARS-CoV-2 (COVID-19) RNA ANTONETTE+probe Ql (Resp) Not detected Not Detected [facility] Absolute lymphocyte countOrd ered By: Dr. Ball on 12-23-2022 Lymphocytes Auto (Unsp spec) [#/Vol] 2.66 10*3/uL 0.83-4.51 [facility] Basophil percentageOrdered B y: Dr. Ball on 12-23-2022 Basophils/100 WBC (Bld) 0.8 % 0-1 [facility] Bilirubin [Mass/Vol] 0.20 mg/dL 0.20-1.[address] [facility] Comment on above: For patients on eltr ombopag therapy, use of Dimension [place] TBIL is not recommended. Chloride [Moles/Vol] 109 mmol/L 98-[address] [facility] Eosinophils/100 WBC (Bld) 5.7 % 0-3 [facility] Glucose [Mass/Vol] 87 mg/dL 74-106 [facility] Neutrophils (Bld) [#/Vol] 4.4 10*3/uL 2.0-7.7 [facility] Neutrophils/100 WBC (Bld) 52.5 % 34-64 [facility] Potassium [Moles/Vol] 4.1 mmol/L 3.5-5.1 [facility] Protein [Mass/Vol] 8.2 g/dL 6.4-8.2 [facility] Sodium [Moles/Vol] 143 mmol/L 136-145 [facility] WBC (Bld) [#/Vol] 8.4 10*3/uL 4.5-13.0 [facility] Blood erythrocytes count (nu mber/volume)Ordered By: Dr. Ball on 12-23-2022 RBC (Bld) [#/Vol] 5.16 10*6/uL 4.5-5.1 [facility] Blood hemoglobin measurement (mass/volume)Ordered By: Dr. Ball on 12-23-2022 Hemoglobin (Bld) [Mass/Vol] 15.3 g/dL 13.0-16.5 [facility] Blood lymphocytes/100 leukoc ytesOrdered By: Dr. Ball on 12-23-2022 Lymphocytes/100 WBC (Bld) 31.7 % 25-45 [facility] Blood monocytes/100 leukocyt esOrdered By: Dr. Ball on 12-23-2022 Monocytes/100 WBC (Bld) 8.8 % 3-6 [facility] Blood platelet mean volumeOr dered By: Dr. Ball on 12-23-2022 Platelet mean volume (Bld) [Entitic vol] 11.0 fL 6.2-12.0 [facility] Determination of erythrocyte mean corpuscular volume (MCV)Ordered By: Dr. Ball on 12-23-2022 MCV (RBC) [Entitic vol] 91.5 fL 78-96 [facility] Direct bilirubinOrdered By: Dr. Ball on 12-23-2022 Bilirubin.direct [Mass/Vol] 0.08 mg/dL 0.00-0.30 [facility] Hematocrit Auto (Bld) [Volum e fraction]Ordered By: Dr. Ball on 12-23-2022 Hematocrit (Bld) [Volume fraction] 47.2 % 36-47 [facility] Laboratory - Chemistry and C hemistry - challengeOrdered By: Dr. Ball on 12-23-2022 ALP [Catalytic activity/Vol] 126 U/L 52-171 [facility] ALT [Catalytic activity/Vol] 41 U/L 16-61 [facility] CO2 [Moles/Vol] 26.0 mmol/L 21.0-32.0 [facility] Globulin (S) [Mass/Vol] 4.5 g/dL 2.2-4.2 [facility] Urea nitrogen/Creatinine [Mass ratio] 15.4 mg/mg 10-20 [facility] Laboratory - Hematology and Cell countsOrdered By: Dr. Ball on 12-23-2022 Erythrocyte distribution width (RBC) [Entitic vol] 42.5 fL 35.1-43.9 [facility] Erythrocyte distribution width (RBC) [Ratio] 12.6 % 11.6-14.6 [facility] Immature granulocytes/100 WBC (Bld) 0.500 % 0.0-0.9 [facility] Comment on above: IG% - Immature Granu locytes (promyelocytes, myelocytes and metamyelocytes) > 1% indicates that a LEFT SHIFT is Present. MCH (RBC) [Entitic mass] 29.7 pg 25.0-35.0 [facility] Nucleated RBC/100 WBC (Bld) [Ratio] 0 % 0-5 [facility] MCHC Auto (RBC) [Mass/Vol]Or dered By: Dr. Ball on 12-23-2022 MCHC (RBC) [Mass/Vol] 32.4 g/dL 32-36 [facility] No Panel InformationOrdered By: Dr. Ball on 12-23-2022 Estimated GFR (MDRD) Amer 119 mL/min >60 [facility] Comment on above: GFR Calc Estimated GFR (MDRD) Non-Af Amer 98 mL/min >60 [facility] Comment on above: Non- GFR Calc Levetiracetam (Keppra) Level 11.6 ug/mL 10.0-40.0 [facility] Comment on above: Performed at: [address] [id number] Director: Hardeep La MD, Phone: [phone] Platelets bldOrdered By: Dr. Ball on 12-23-2022 Platelets (Bld) [#/Vol] 275 10*3/uL 150-450 [facility] Serum or plasma albumin brandon urement (mass/volume)Ordered By: Dr. Ball on 12-23-2022 Albumin [Mass/Vol] 3.7 g/dL 3.2-5.0 [facility] Serum or plasma calcium brandon urement (mass/volume)Ordered By: Dr. Ball on 12-23-2022 Calcium [Mass/Vol] 9.0 mg/dL 8.5-10.1 [facility] Serum or plasma creatinine m easurement (mass/volume)Ordered By: Dr. Ball on 12-23-2022 Creatinine [Mass/Vol] 1.04 mg/dL 0.70-1.30 [facility] Comment on above: The validity of the calculated GFR & GFRAA in patients over 70 years has not been determined. Clinical correlation is essential. Serum or plasma urea nitroge n measurement (mass/volume)Ordered By: Dr. Ball on 12-23-2022 Urea nitrogen [Mass/Vol] 16 mg/dL 7-18 [facility] Thin prep Papanicolaou smear with manual screeningOrdered By: Dr. Ball on 12-23-2022 Thin prep Papanicolaou smear with manual screening 45 U/L 15-37 [facility] Thin prep Papanicolaou smear with manual screening 8 5-15 [facility] Absolute lymphocyte counton 04-25-2022 Lymphocytes Auto (Unsp spec) [#/Vol] 2.10 10*3/uL 0.83-4.51 [facility] Work Phone: Basophil percentageon 2021 Basophils/100 WBC (Bld) 0.3 % 0-1 [facility] Work Phone: Chloride [Moles/Vol] 107 mmol/L 98-[address] [facility] Work Phone: Eosinophils/100 WBC (Bld) 4.3 % 0-3 [facility] Work Phone: Glucose [Mass/Vol] 85 mg/dL 74-106 [facility] Work Phone: Lactate [Moles/Vol] 1.8 mmol/L 0.4-2.0 [facility] Work Phone: Neutrophils (Bld) [#/Vol] 4.9 10*3/uL 2.0-7.7 [facility] Work Phone: Neutrophils/100 WBC (Bld) 61.4 % 34-64 [facility] Work Phone: Potassium [Moles/Vol] 4.2 mmol/L 3.5-5.1 [facility] Work Phone: Sodium [Moles/Vol] 139 mmol/L 136-145 [facility] Work Phone: WBC (Bld) [#/Vol] 8.0 10*3/uL 4.5-13.0 [facility] Work Phone: Blood erythrocytes count (nu mber/volume)on 04-25-2022 RBC (Bld) [#/Vol] 4.92 10*6/uL 4.5-5.1 [facility] Work Phone: Blood hemoglobin measurement (mass/volume)on 04-25-2022 Hemoglobin (Bld) [Mass/Vol] 14.5 g/dL 13.0-16.5 [facility] Work Phone: Blood lymphocytes/100 leukoc yteson 04-25-2022 Lymphocytes/100 WBC (Bld) 26.3 % 25-45 [facility] Work Phone: Blood monocytes/100 leukocyt eson 04-25-2022 Monocytes/100 WBC (Bld) 7.4 % 3-6 [facility] Work Phone: Blood platelet mean volumeon 04-25-2022 Platelet mean volume (Bld) [Entitic vol] 10.3 fL 6.2-12.0 [facility] Work Phone: Determination of erythrocyte mean corpuscular volume (MCV)on 04-25-2022 MCV (RBC) [Entitic vol] 89.6 fL 78-96 [facility] Work Phone: Hematocrit Auto (Bld) [Volum e fraction]on 04-25-2022 Hematocrit (Bld) [Volume fraction] 44.1 % 36-47 [facility] Work Phone: Laboratory - Chemistry and C hemistry - challengeon 04-25-2022 CO2 [Moles/Vol] 23.0 mmol/L 21.0-32.0 [facility] Work Phone: Urea nitrogen/Creatinine [Mass ratio] 17.2 mg/mg 10-20 [facility] Work Phone: Laboratory - Hematology and Cell countson 04-25-2022 Erythrocyte distribution width (RBC) [Entitic vol] 41.8 fL 35.1-43.9 [facility] Work Phone: Erythrocyte distribution width (RBC) [Ratio] 12.7 % 11.6-14.6 [facility] Work Phone: Immature granulocytes/100 WBC (Bld) 0.300 % 0.0-0.9 [facility] Work Phone: Comment on above: IG% - Immature Granu locytes (promyelocytes, myelocytes and metamyelocytes) > 1% indicates that a LEFT SHIFT is Present. MCH (RBC) [Entitic mass] 29.5 pg 25.0-35.0 [facility] Work Phone: Nucleated RBC/100 WBC (Bld) [Ratio] 0 % 0-5 [facility] Work Phone: MCHC Auto (RBC) [Mass/Vol]on 04-25-2022 MCHC (RBC) [Mass/Vol] 32.9 g/dL 32-36 [facility] Work Phone: No Panel Informationon 04-25 Estimated Creatinine Clearance Calc 109.99 ml/min [facility] Work Phone: Estimated GFR (MDRD) Amer 105 mL/min >60 [facility] Work Phone: Comment on above: GFR Calc Estimated GFR (MDRD) Non-Af Amer 87 mL/min >60 [facility] Work Phone: Comment on above: Non- GFR Calc Platelets bldon 04-25-2022 Platelets (Bld) [#/Vol] 225 10*3/uL 150-450 [facility] Work Phone: Serum or plasma calcium brandon urement (mass/volume)on 04-25-2022 Calcium [Mass/Vol] 9.0 mg/dL 8.5-10.1 [facility] Work Phone: Serum or plasma creatinine m easurement (mass/volume)on 04-25-2022 Creatinine [Mass/Vol] 1.16 mg/dL 0.70-1.30 [facility] Work Phone: Comment on above: The validity of the calculated GFR & GFRAA in patients over 70 years has not been determined. Clinical correlation is essential. Serum or plasma urea nitroge n measurement (mass/volume)on 04-25-2022 Urea nitrogen [Mass/Vol] 20 mg/dL 7-18 [facility] Work Phone: Thin prep Papanicolaou smear with manual screeningon 04-25-2022 Thin prep Papanicolaou smear with manual screening 9 5-15 [facility] Work Phone: Vital Signs Date Time Vital Sign Value Performing Clinician Facility 06-27-2024 15:17-0500 Body height 182.9 cm Daniel Nolasco MD Work Phone: [facility] 06-27-2024 15:17-0500 Body mass index (BMI) [Ratio] 31.4 kg/m2 Daniel Nolasco MD Work Phone: [facility] 06-27-2024 15:17-0500 Body weight 105.01 kg Daniel Nolasco MD Work Phone: [facility] 06-27-2024 15:17-0500 Diastolic blood pressure 78 mm[Hg] Daniel Nolasco MD Work Phone: [facility] 06-27-2024 15:17-0500 Heart rate 88 /min Daniel Nolasco MD Work Phone: [facility] 06-27-2024 15:17-0500 SaO2% (BldA) [Mass fraction] 99 % Daniel Nolasco MD Work Phone: [facility] 06-27-2024 15:17-0500 Systolic blood pressure 122 mm[Hg] Daniel Nolasco MD Work Phone: [facility] 07-11-2023 13:05-0500 Diastolic blood pressure 66 mm[Hg] Álavro Castillo DO Work Phone: [facility] 07-11-2023 13:05-0500 Heart rate 99 /min Álvaro Castillo DO Work Phone: [facility] 07-11-2023 13:05-0500 Respiratory rate 16 /min Álvaro Castillo DO Work Phone: [facility] 07-11-2023 13:05-0500 SaO2% (BldA) [Mass fraction] 99 % Álvaro Castillo DO Work Phone: [facility] 07-11-2023 13:05-0500 Systolic blood pressure 118 mm[Hg] Álvaro Castillo DO Work Phone: [facility] 07-11-2023 08:39-0500 Body height 182.9 cm Álvaro Castillo DO Work Phone: [facility] 07-11-2023 08:39-0500 Body mass index (BMI) [Ratio] 32.55 kg/m2 Álvaro Castillo DO Work Phone: [facility] 07-11-2023 08:39-0500 Body weight 108.86 kg Álvaro Castillo DO Work Phone: [facility] 07-11-2023 08:38-0500 Body temperature 98.71 [degF] Álvaro Castillo DO Work Phone: [facility] 04-25-2022 08:51-0400 Diastolic blood pressure 74 mm[Hg] [facility] Work Phone: 04-25-2022 08:51-0400 Heart rate 75 /min [facility] Work Phone: 04-25-2022 08:51-0400 Respiratory rate 24 /min [facility] Work Phone: 04-25-2022 08:51-0400 SaO2% (BldA) [Mass fraction] 97 % [facility] Work Phone: 04-25-2022 08:51-0400 Systolic blood pressure 149 mm[Hg] [facility] Work Phone: 04-25-2022 07:19-0400 Body height 180.34 cm [facility] Work Phone: 04-25-2022 07:19-0400 Body mass index (BMI) [Percentile] Per age and sex 99 % [facility] Work Phone: 04-25-2022 07:19-0400 Body mass index (BMI) [Ratio] 34.7 kg/m2 [facility] Work Phone: 04-25-2022 07:19-0400 Body temperature 97.7 [degF] [facility] Work Phone: 04-25-2022 07:19-0400 Body weight 112.9 kg [facility] Work Phone: 03-08-2021 11:59-0400 Body height 182.8 cm Gerard Gonzalez Other Phone: [facility] 03-08-2021 11:59-0400 Body temperature 98.06 [degF] Gerard Gonzalez Other Phone: [facility] 03-08-2021 11:59-0400 Diastolic blood pressure 81 mm[Hg] Gerard Gonzalez Other Phone: [facility] 03-08-2021 11:59-0400 Heart rate 65 /min Gerard Gonzalez Other Phone: [facility] 03-08-2021 11:59-0400 Respiratory rate 16 /min Gerard Gonzalez Other Phone: [facility] 03-08-2021 11:59-0400 SaO2% (BldA) [Mass fraction] 97 % Gerard Gonzalez Other Phone: [facility] 03-08-2021 11:59-0400 Systolic blood pressure 134 mm[Hg] Gerard Pulidon Other Phone: [facility] Encounters Encounter Date Encounter Type Care Provider Facility Start: 02-25-2025 End: 02-25-[address] Chantal Ball MD Work Phone: [facility] [place] Start: 02-25-2025 End: 02-25-[address] Demarco Jimenez DO -[facility] [place] Work Phone: Start: 02-25-2025 End: 02-25-2025 ambulatory Chantal Ball Facility:[facility] Start: 07-23-2024 End: 07-23-2024 ambulatory Mary Jane Daigle Facility:[facility] Start: 06-27-2024 End: 06-27-2024 Office outpatient visit 25 minutes Daniel Nolasco MD Work Phone: [facility] Comment on above: Partial symptomatic epilepsy with complex partial seizures, not intractable, without status epilepticus (CMS/HCC) (Primary Dx) Start: 06-27-2024 End: 06-27-2024 ambulatory DANIEL NOLASCO Not Available Start: 06-27-2024 End: 06-27-2024 Bamboo flowsheet Daniel Nolasco MD Work Phone: [facility] Start: 06-27-2024 End: 06-27-2024 Bamboo flowsheet Daniel Nolasco MD Work Phone: [facility] Start: 08-11-2023 End: 08-11-2023 ambulatory [facility] Work Phone: Start: 08-11-2023 End: 08-11-2023 Patient encounter procedure [facility], [place] Work Phone: Start: 07-11-2023 End: 07-11-2023 Emergency department patient visit Álvaro Castillo DO Work Phone: [facility] Comment on above: Syncope and collapse (Primary Dx); Pulmonary nodule; Abrasion of face, initial encounter Start: 07-05-2023 End: 07-05-2023 ambulatory DANIEL Linda NOLASCO Not Available Start: 12-23-2022 End: 12-23-2022 ambulatory [facility] Work Phone: Start: 12-23-2022 End: 12-23-2022 Patient encounter procedure [facility], [facility] Start: 06-27-2022 End: 06-27-2022 ambulatory [facility] Work Phone: Start: 06-27-2022 End: 06-27-2022 Patient encounter procedure [facility] - [facility] Start: 06-01-[address] Gerard Gonzalez Facility:[id number] Start: 04-29-2022 End: 04-30-[address] [facility] Start: 04-25-2022 End: 04-25-2022 Emergency department patient visit [facility] Start: 03-08-2021 End: 03-08-2021 Emergency department patient visit [facility] Procedures Date Procedure Procedure Detail Performing Clinician Start: 07-11-2023 CT ANGIO CHEST FOR PULMONARY EMBOLISM GERARD GONZALEZ Start: 07-11-2023 CT CERVICAL SPINE WO IV CONTRAST GERARD GONZALEZ Start: 07-11-2023 CT HEAD WO IV CONTRAST GERARD GONZALEZ Start: 07-11-2023 Basic metabolic 2000 panel - Serum or Plasma GERARD GONZALEZ Start: 07-11-2023 CBC W Auto Different ial panel - Blood GERARD GONZALEZ Start: 07-11-2023 SARS-COV-2 PCR, SYMPTOMATIC GERARD GONZALEZ Start: 07-11-2023 Ct angiography chest w/contrast/noncontrast Álvaro Castillo DO Work Phone: Start: 07-11-2023 Ct cervical spine w/ o contrast material Álvaro Castillo DO Work Phone: Start: 07-11-2023 Ct head/brain w/o co ntrast material Álvaro Castillo DO Work Phone: Start: 07-11-2023 ECG 12-LEAD GERARD EDWARDS Start: 07-11-2023 Basic metabolic pane l calcium total Álvaro Castillo DO Work Phone: Start: 07-11-2023 Sars-cov-2 detection by dna/rna Álvaro Castillo DO Work Phone: Start: 06-27-2022 MRI of brain without contrast Start: 04-26-2022 Lipid 1996 panel - S dov or Plasma Álvaro Castillo DO Work Phone: Start: 04-25-2022 CT of head without contrast Plan of Treatment Date Care Activity Detail Author Start: 2054 Zoster Vaccines (1 o f 2) Zoster Vaccines (1 of 2) [facility] Start: 07-11-2033 DTaP/Tdap/Td Vaccine s (8 - Td or Tdap) DTaP/Tdap/Td Vaccines (8 - Td or Tdap) [facility] Start: 04-26-2027 Lipid panel Lipid Panel [facility] Start: 06-27-2024 End: 06-27-2024 Patient encounter procedure 06/27/2024 3:20 PM EST Office Visit [facility] [address] [place] [id number] Daniel Nolasco MD [address] [place], [place] [id number] Arrived [facility] Comment on above: Arrived Start: 04-21-2023 Influenza vaccination Influenza Vacc ine (#1) [facility] Start: 04-25-2022 Seizure precautions [facility] Work Phone: Start: 2022 Hepatitis C screening Hepatitis C [facility] Start: 2015 HPV Vaccines (1 - Ma le 2-dose series) HPV Vaccines (1 - Male 2-dose series) [facility] Start: 2007 Well Child Visit (WC V) - Annual Well Child Visit (WCV) - Annual [facility] Start: 2004 Application of denta l fluoride varnish Fluoride Varnish [facility] Start: 2004 COVID-19 Vaccine (#1) COVID-19 Vacci ne (#1) [facility] Start: 2004 Hearing Screening (#1) Hearing Emilie cochran (#1) [facility] Start: 2004 HIV screening HIV Screening [facility] End: 07-11-2023 ECG 12 lead ECG 12 lead ECG STAT Once for 1 Occurrences starting 07/11/2023 until 07/11/2023 [facility] Service Area Work Phone: Comment on above: Once for 1 Occurrenc es starting 07/11/2023 until 07/11/2023 Patient Education ED ALOC [facility] Work Phone: Patient referral [facility] Work Phone: Immunizations Immunization Date Immunization Notes Care Provider Fa sd 07-11-2023 tetanus toxoid, redu ngoc diphtheria toxoid, and acellular pertussis vaccine, adsorbed Álvaro Castillo DO Work Phone: [facility] Payers Date Payer Category Payer Self-pay [id number] 2024 Unknown [id number] [id number] 2022 Unknown 2021 Unknown [id number] 2004 Unknown [id number] 2004 Unknown [id number] 2004 Unknown [id number] 2004 Unknown [id number] 2004 Unknown [id number] Unknown [id number] Unknown [id number] Unknown [id number] Social History Date Type Detail Facility [facility] Start: 04-25-2022 End: 04-25-2022 Tobacco smoking consumption unknown [facility] Start: 2004 Sex Assigned At Male [facility] Start: 04-25-2022 End: 07-11-2023 Tobacco smoking status NHIS Never smoked tobacco [facility] Work Phone: Start: 06-23-2023 End: 07-11-2023 Tobacco use and exposure Smokeless tobacco non-user [facility] Work Phone: Start: 07-11-2023 End: 06-27-2024 History of Social function [facility] Work Phone: Start: 07-11-2023 End: 06-27-2024 Tobacco use panel [facility] Work Phone: Start: 07-11-2023 Gender identity Identifies as male gender (finding) [facility] Work Phone: Start: 07-01-2023 End: 07-11-2023 Exposure to SARS-CoV-2 (event) Not sure [facility] Work Phone: Start: 07-05-2023 End: 06-27-2024 Alcoholic beverage intake Lifetime non-drinker (finding) [facility] Start: 06-23-2023 Alcohol Comment caffeine: 1-[address] [facility] Start: 2004 Sex assigned at Not on file [facility] Mental Status Date Assessment Result Facility 04-25-2022 Cognitive function Appropriate;[facility] Work Phone: History of Present illness Narrative 06-27-2024 Daniel Nolasco MD - 06/27/2024 3:20 PM EST Note Date & Type Note Facility 06-27-2024 History of Presen t illness Narrative Images from the original note were not included. CHIEF COMPLAINT: Hubert Donnelly is a 19 y.o. male here today for Chief Complaint Patient presents with Seizures HISTORY OF PRESENT ILLNESS: History of Present Illness The patient presents for a follow-up of idiopathic seizures. He reports no new or unusual symptoms at this time. He is currently taking Keppra 500 mg twice daily and has not experienced any seizures. His last seizure occurred over 2 years ago. He is curious about the possibility of reducing the dosage in the future. He also wonders if his seizures could be related to his history of playing football. He reports no disturbances at night, such as waking up with a sore tongue or cheek, blood on the pillow, or bedwetting. An MRI was conducted in [place] in 2021 following a significant seizure episode. He has experienced 3 or 4 seizures in his lifetime, including 4 instances where he woke up with a torn tongue. 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 His primary care physician, Dr. Chantal Lozano, has expressed willingness to manage his care, pending receipt of his medical information. Current Outpatient Medications on File Prior to Visit Medication Sig Dispense Refill levETIRAcetam (Keppra) 500 MG tablet Take 1 tablet (500 mg) by mouth in the morning and 1 tablet (500 mg) before bedtime. 180 tablet 3 No current facility-administered medications on file prior to visit. Past Medical History: Diagnosis Date Seizure (CMS/HCC) Past Surgical History: Procedure Laterality Date TONSILLECTOMY Family History Problem Relation Name Age of Onset Thyroid disease Father Social History Tobacco Use Smoking status: Never Smokeless tobacco: Never Substance Use Topics Alcohol use: Never Comment: caffeine: 1-2 cups per day ALLERGIES: Penicillins REVIEW OF SYSTEMS: General: Appetite change: denies. Chills: denies. Fever: denies. Allergy/Immunology: Unusual rection to medications, food, animals or insects reaction: denies. Ophthalmologic: Visual acuity change: denies. ENT: Decreased hearing: denies. Endocrine: Weight loss: denies. Respiratory: Cough: denies. Wheezing: denies. Cardiovascular: Chest pain: denies. Palpitations: denies. Gastrointestinal: Abdominal pain: denies. Difficulty swallowing: denies Hematology: Bleeding problems: denies. Genitourinary: Painful urination: denies. Musculoskeletal: Joint pain: denies. Joint edema: denies. Skin: Rash: denies. Neurologic: Ataxia: denies, Tremor: denies. Psychiatric Anxiety: denies. Depression: denies. Insomnia: denies. Suicidal thoughts: denies. Also see HPI for elements of ROS documented therein and for details of positive findings, which shall supersede the foregoing. OBJECTIVE: Objective Vitals: 06/27/24 1517 BP: 122/78 Pulse: 88 SpO2: 99% Weight: 231 lb 8 oz Height: 6' Body mass index is 31.4 kg/m . No orders to display No visits with results within 2 Month(s) from this visit. Latest known visit with results is: No results found for any previous visit. Results Examination: General Exam: pleasant, well nourished, well developed, in no acute distress Head: normocephalic, atraumatic Eyes: extraocular movement intact (EOMI), pupils equal, round, reactive to light, upper eyelids normal , lower eyelids normal Ears: no obvious hearing deficit Nose: Nares patent Neck/Throat: neck supple, full range of motion Oral Cavity: mucosa moist Skin: warm and dry Heart: no murmurs, regular rate and rhythm, S1, S2 normal Lungs: clear to auscultation bilaterally, good air movement, no wheezes, rales, rhonci, speaks in full sentences Chest: normal shape and expansion Abdomen: bowel sounds present, soft, nontender, nondistended, no guarding or rigidity Extremities: no edema, no cyanosis Musculoskeletal: no swelling or deformity Neurologic: AAOx3, memory intact, fund of knowledge appropriate Naming and repetition intact, fluent language, follows 3-step commands Pupils equal and reactive EOM intact, no gaze preference or deviation, no nystagmus. Normal sensation in V1, V2, and V3 segments bilaterally No facial asymmetry, no nasolabial fold flattening Normal hearing to speech Normal palatal elevation, no uvular deviation Normal midline tongue protrusion 5/5 head turn and 5/5 shoulder shrug bilaterally 5/5 muscle power in bilateral shoulder abductors/adductors, elbow flexors/extensors, wrist flexors/extensors, finger abductors/adductors. 5/5 in bilateral hip flexors/extensors, knee flexors/extensors, ankle dorsiflexors and plantar flexors. Reflexes 2/4 throughout, bilateral flexor plantar response, no Wilson's, no clonus Sensation intact to touch, pinprick, vibration, and temperature in all limbs No hemineglect, no extinction to double sided stimulation (visual & tactile) Romberg absent Coordination intact to finger to nose and heel to deluna, no tremor, no dysmetria Normal stance, no truncal ataxia Normal gait; patient able to tip-toe, heel-walk Psych: pleasant, cooperative, good eye contact, speech clear, judgement and insight good ASSESSMENT/PLAN: Assessment & Plan 1. Idiopathic seizures. He is doing very well on Keppra 500 mg twice a day with no recurrence. It is recommended that he stay on an anticonvulsant for his lifetime. The potential side effects and the importance of adherence to the medication regimen were discussed. He is welcome to follow up with me on an as-needed basis. A note will be sent to his primary care physician, to continue his care and manage his medication. documented in this encounter [facility] Emergency department Note 07-11-2023 Álvaro Castillo, DO - 07/11/2023 8:33 AM EST Note Date & Type Note Facility 07-11-2023 Emergency department Note HPI Chief Complaint Patient presents with Syncope To er per afd with syncopal episode. States he was at work started feeling dizzy and nauseated, sat down then fell forward and hit his head. He woke with everyone standing over him. C/o sore throat last pm. Pt is alert and oriented now. Patient presents to the emergency department by squad secondary to a syncopal event. The patient states that he began having nasal congestion and sore throat yesterday. Today at work he started to feel a bit dizzy as well and the next thing I know I was on the ground and people were standing over me. He has a history of seizure disorder but denies biting his tongue or losing continence of his bowels or bladder. 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 No pertinent surgical history. No family history on file. Social History Tobacco Use Smoking status: Never Smokeless tobacco: Never Substance Use Topics Alcohol use: Not on file Drug use: Never Physical Exam ED Triage Vitals [07/11/23 0838] Temp Heart Rate Resp BP 37.1 C (98.7 F) 102 20 143/82 SpO2 Temp Source Heart Rate Source Patient Position 96 % Oral -- Lying BP Location FiO2 (%) -- -- Physical Exam Vitals and nursing note reviewed. Constitutional: General: He is not in acute distress. Appearance: Normal appearance. He is normal weight. He is not ill-appearing, toxic-appearing or diaphoretic. HENT: Head: Normocephalic. Comments: Patient has 2 separate circumferential abrasions over the right side of the face. 1 is inferior to the right orbit and measures 3 cm. The other is circular and 4 cm in circumference over the central right forehead. No hemotympanum. Pupils are equal. Extraocular muscles are intact. Right Ear: Tympanic membrane, ear canal and external ear normal. There is no impacted cerumen. Left Ear: Tympanic membrane, ear canal and external ear normal. There is no impacted cerumen. Nose: Nose normal. No rhinorrhea. Mouth/Throat: Mouth: Mucous membranes are moist. Pharynx: Oropharynx is clear. No oropharyngeal exudate or posterior oropharyngeal erythema. Eyes: Extraocular Movements: Extraocular movements intact. Pupils: Pupils are equal, round, and reactive to light. Neck: Comments: Trachea is midline. Cervical collar was left intact as I cannot clear the patient by Nexus criteria. Cardiovascular: Rate and Rhythm: Regular rhythm. Tachycardia present. Heart sounds: No murmur heard. Pulmonary: Effort: Pulmonary effort is normal. Breath sounds: Normal breath sounds. No wheezing. Abdominal: General: Abdomen is flat. Bowel sounds are normal. There is no distension. Palpations: Abdomen is soft. Tenderness: There is no abdominal tenderness. Musculoskeletal: General: Normal range of motion. Cervical back: Normal range of motion. Skin: General: Skin is warm and dry. Findings: No rash. Neurological: General: No focal deficit present. Mental Status: He is alert and oriented to person, place, and time. Mental status is at baseline. Cranial Nerves: No cranial nerve deficit. Sensory: No sensory deficit. Motor: No weakness. Coordination: Coordination normal. Deep Tendon Reflexes: Reflexes normal. Psychiatric: Mood and Affect: Mood normal. Behavior: Behavior normal. Thought Content: Thought content normal. Judgment: Judgment normal. ED Course & MDM Diagnoses as of 07/11/23 1246 Syncope and collapse Medical Decision Making Twelve-lead EKG was interpreted by myself and this was noted to contribute directly to patient care. Study reveals normal sinus rhythm at 97 bpm, rightward axis, normal R wave progression, no acute ischemic changes. Once the patient's testing results were completed I went over the studies with the patient. I informed him of the pulmonary nodule noted on his CAT scan and explained that this is an incidental finding although it will require follow-up by his private physician to ensure resolution and he understands the importance of this. In regards to today's events the patient is once again up and ambulatory here in the ER and has remained asymptomatic during his entire ER stay. Differential considerations would include, but not limited to, transient hypotension, fatigue secondary to viral illness, amongst many others. There is no evidence of any acute issue that requires hospitalization at this time and due to the patient's lack of risk factors I feel he is appropriate for discharge. He also confirms that his tachycardia which has been intermittent while here in the department, is chronic and known to him. He will be given a work note for today and instructed to rest, limit activity as tolerated, increase fluid intake and return if worse. He was also given instructions on how to care for his facial abrasions. Procedure Procedures Álvaro Castillo DO 07/11/23 1248 documented in this encounter [facility] Work Phone: Physician Emergency department Note 07-11-2023 Álvaro Castillo DO - 07/11/2023 8:33 AM EST Note Date & Type Note Facility 07-11-2023 Physician Emergency department Note HPI Chief Complaint Patient presents with Syncope To er per afd with syncopal episode. States he was at work started feeling dizzy and nauseated, sat down then fell forward and hit his head. He woke with everyone standing over him. C/o sore throat last pm. Pt is alert and oriented now. Patient presents to the emergency department by squad secondary to a syncopal event. The patient states that he began having nasal congestion and sore throat yesterday. Today at work he started to feel a bit dizzy as well and the next thing I know I was on the ground and people were standing over me. He has a history of seizure disorder but denies biting his tongue or losing continence of his bowels or bladder. 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 No pertinent surgical history. No family history on file. Social History Tobacco Use Smoking status: Never Smokeless tobacco: Never Substance Use Topics Alcohol use: Not on file Drug use: Never Physical Exam ED Triage Vitals [07/11/23 0838] Temp Heart Rate Resp BP 37.1 C (98.7 F) 102 20 143/82 SpO2 Temp Source Heart Rate Source Patient Position 96 % Oral -- Lying BP Location FiO2 (%) -- -- Physical Exam Vitals and nursing note reviewed. Constitutional: General: He is not in acute distress. Appearance: Normal appearance. He is normal weight. He is not ill-appearing, toxic-appearing or diaphoretic. HENT: Head: Normocephalic. Comments: Patient has 2 separate circumferential abrasions over the right side of the face. 1 is inferior to the right orbit and measures 3 cm. The other is circular and 4 cm in circumference over the central right forehead. No hemotympanum. Pupils are equal. Extraocular muscles are intact. Right Ear: Tympanic membrane, ear canal and external ear normal. There is no impacted cerumen. Left Ear: Tympanic membrane, ear canal and external ear normal. There is no impacted cerumen. Nose: Nose normal. No rhinorrhea. Mouth/Throat: Mouth: Mucous membranes are moist. Pharynx: Oropharynx is clear. No oropharyngeal exudate or posterior oropharyngeal erythema. Eyes: Extraocular Movements: Extraocular movements intact. Pupils: Pupils are equal, round, and reactive to light. Neck: Comments: Trachea is midline. Cervical collar was left intact as I cannot clear the patient by Nexus criteria. Cardiovascular: Rate and Rhythm: Regular rhythm. Tachycardia present. Heart sounds: No murmur heard. Pulmonary: Effort: Pulmonary effort is normal. Breath sounds: Normal breath sounds. No wheezing. Abdominal: General: Abdomen is flat. Bowel sounds are normal. There is no distension. Palpations: Abdomen is soft. Tenderness: There is no abdominal tenderness. Musculoskeletal: General: Normal range of motion. Cervical back: Normal range of motion. Skin: General: Skin is warm and dry. Findings: No rash. Neurological: General: No focal deficit present. Mental Status: He is alert and oriented to person, place, and time. Mental status is at baseline. Cranial Nerves: No cranial nerve deficit. Sensory: No sensory deficit. Motor: No weakness. Coordination: Coordination normal. Deep Tendon Reflexes: Reflexes normal. Psychiatric: Mood and Affect: Mood normal. Behavior: Behavior normal. Thought Content: Thought content normal. Judgment: Judgment normal. ED Course & MDM Diagnoses as of 07/11/23 1246 Syncope and collapse Medical Decision Making Twelve-lead EKG was interpreted by myself and this was noted to contribute directly to patient care. Study reveals normal sinus rhythm at 97 bpm, rightward axis, normal R wave progression, no acute ischemic changes. Once the patient's testing results were completed I went over the studies with the patient. I informed him of the pulmonary nodule noted on his CAT scan and explained that this is an incidental finding although it will require follow-up by his private physician to ensure resolution and he understands the importance of this. In regards to today's events the patient is once again up and ambulatory here in the ER and has remained asymptomatic during his entire ER stay. Differential considerations would include, but not limited to, transient hypotension, fatigue secondary to viral illness, amongst many others. There is no evidence of any acute issue that requires hospitalization at this time and due to the patient's lack of risk factors I feel he is appropriate for discharge. He also confirms that his tachycardia which has been intermittent while here in the department, is chronic and known to him. He will be given a work note for today and instructed to rest, limit activity as tolerated, increase fluid intake and return if worse. He was also given instructions on how to care for his facial abrasions. Procedure Procedures Álvaro Castillo DO 07/11/23 1248 [facility] Work Phone: Evaluation note Note Date & Type Note Facility Evaluation note No assessment information availa ble [facility] Work Phone: Evaluation note Note Date & Type Note Facility Evaluation note Diagnosis Syncope and collapse- Primary Pulmonary nodule Other diseases of lung, not elsewhere classified Abrasion of face, initial encounter documented in this encounter [facility] Work Phone: Evaluation note Note Date & Type Note Facility Evaluation note Diagnosis Partial symptomatic epilepsy with complex partial seizures, not intractable, without status epilepticus ([facility] Primary documented in this encounter [facility] Reason for referral (narrative) Note Date & Type Note Facility Reason for referral (narrative) No reason for referral information available [facility] Work Phone: Chief Complaint and Reason for Visit Chief Complaint seizure Chief Complaint seizure EPILEPSY Chief Complaint Admit Date LAB February 25, 2025 4:20p m Advance Directives No Advanced Directives Records Found Advance Directive Response Recorded Date/ Time Living Will No April 25 7:24am Power of Duralumin Mechanic No April 25, 2022 7:24am Advance Directive Response Recorded Date/ Time Living Will No April 25 6:24am Power of Duralumin Mechanic No April 25, 2022 6:24am Summary Purpose Family History No Family History Records FoundNo Family History Records FoundNo Family History Records FoundNo Family History Records FoundNo Family History Records Found Additional Source Comments <item> Privacy Markings (unrecogniz ed section and content) Section Author: Chantel Manzo PROHIBITION ON REDISCLOSURE OF CONFIDENTIAL INFORMATION This notice accompanies a disclosure of information concerning a client made to you with the consent of such client. Goals (unrecognized section and content) Goals may be documented in a n alternate sectionGoals may be documented in an alternate sectionGoals may be documented in an alternate sectionGoals may be documented in an alternate sectionGoals may be documented in an alternate section (unrecognized sect ion and content) No Status Records FoundNo Status Records FoundNo Status Records FoundNo Status Records FoundNo Status Records Found INFORMATION SOURCE (unrecogn ized section and content) DATE CREATED AUTHOR 05/03/2022 [facility] DATE CREATED AUTHOR AUTHOR'S ORGANIZ ATION 06/13/2022 [facility] DATE CREATED AUTHOR AUTHOR'S ORGANIZ ATION 05/05/2024 [facility] DATE CREATED AUTHOR AUTHOR'S ORGANIZ ATION 06/29/2024 [facility] DATE CREATED AUTHOR AUTHOR'S ORGANIZ ATION 03/05/2025 [facility] Care Teams (unrecognized sec tion and content) Team Status: Active Member Role Status Dates Dr. Gerard Gonzalez MD Primary Care Provider Active Team Status: Inactive Member Role Status Dates Dr. Gerard Gonzalez MD Primary Care Provider Active Dr. Chantal Ball MD Attending Provider Active Braided Rug Maker Relationship Specialty Start Date End Date Gerard Gonzalez MD [address] [place] [address] PCP - General 03/08/21 Team Status: Active Member Role Status Dates Dr. Chantal Ball MD Primary Care Provider Active Team Status: Inactive Member Role Status Dates Dr. Chantal Ball MD Primary Care Provider Active Lilian House NP-C Attending Provider, Referring Prov ider Active Braided Rug Maker Relationship Specialty Start Date End Date Chantal Ball MD [address] [facility] [place] [phone] PCP - General 06/27/24 Team Status: Active Member Role/Relationship Status Dates Dr. Chantal Ball MD Primary Care Provider Active Team Status: Inactive Member Role/Relationship Status Dates Dr. Chantal Ball MD Primary Care Provider Active Start: February 25, 2025 End: February 25, 2025 Dr. Demarco Jimenez DO Attending Provider Active Start: February 25, 2025 End: February 25, 2025 Dr. Demarco Jimenez DO Referring Provider Active Start: February 25, 2025 End: February 25, 2025 Reason for Visit (unrecogniz ed section and content) Reason Comments Syncope To er per afd with s yncopal episode. States he was at work started feeling dizzy and nauseated, sat down then fell forward and hit his head. He woke with everyone standing over him. C/o sore throat last pm. Pt is alert and oriented now. Reason Comments Seizures Scheduled Active and Recently Administ ered Medications (unrecognized section and content) Medication Order 07/09/2023 07/10/2023 07/11/2023 iohexol (OMNIPaque) 350 mg iodine/mL solution 69 mL (COMPLETED) 69 mL, intravenous, Once in imaging, Starting on Mon07/11/23 at 1051, For 1 dose 1052 (Given - Provid er: Jessica Coyle) sodium chloride 0.9 % bolus 1,000 mL (COMPLETED) 1,000 mL, intravenous, at 1,000 mL/hr, Administer over 1 Hours, Once, On Mon07/11/23 at 0855, For 1 dose 0903 (New Bag - Prov ider: Chanel Baker RN)1003 (Stopped - Provider: Chanel Baker RN) FOR RECORDS PERTAINING TO PATIENTS WHO ARE OR HAVE BEEN ENROLLED IN A CHEMICAL DEPENDENCY/SUBSTANCEABUSE PROGRAM, SOME INFORMATION MAY BE OMITTED. This clinical summary was aggregated from multiple sources. Caution should be exercised in using it in the provision of clinical care. This summary normalizes information from multiple sources, and as a consequence, information in this document may materially change the coding, format and clinical context of patient data. In addition, data may be omitted in some cases. CLINICAL DECISIONS SHOULD BE BASED ON THE PRIMARY CLINICAL RECORDS. [facility]. provides no warranty or guarantee of the accuracy or completeness of information in this document.
[2025-04-18 18:33] LABS: AST(SGOT) 30 U/L (<=37); Alanine Aminotransfer ALT/SGPT 24 U/L (<=46); Albumin, Serum 4.6 g/dL (3.5-5.0); Alkaline Phosphatase 119 U/L (40-129); Anion Gap 11 (5-15); BUN 15 mg/dL (4-19); BUN/Creat Ratio 13.9 RATIO (10-20); Calcium,Total 9.8 mg/dL (7.6-11.0); Carbon Dioxide 25.7 mmol/L (21.0-32.0); Chloride 103 mmol/L (98-108); Globulin 3.2 g/dL (2.2-4.2); Glucose 64 mg/dL (70-99); Potassium 4.5 mmol/L (3.3-5.1)
[2025-04-22 16:08] LABS: KEPPRA (LEVETIRACETAM) 10.6 ug/mL (10.0-40.0)
== END | disposition home or self-care (01) ==
LOC: MTLAB 16:35
PROVIDERS: PCP Family Medicine; Referring Provider Family Medicine; Visit Provider Family Medicine
DX: G40.909 Epilepsy, unspecified, not intractable, without status epilepticus (principal)
CPT/HCPCS: 36415; 80053; 80177; 84443; 85025

== ENCOUNTER → 2025-04-29 | Outpatient (CLI) | payer BC, SELFPAY | END | disposition home or self-care (01) | LOC: SL 10:44 | PROVIDERS: PCP Family Medicine; Visit Provider Family Medicine | DX: Z46.89 Encounter for fitting and adjustment of other specified devices (principal) ==

== ENCOUNTER 2025-05-21 06:37 | Emergency (ER) | payer BC, SELFPAY ==
[2025-05-21 06:38] VITALS: BP 130/78; PULSE 94; RESP 18; TEMP 36.9; O2SAT 98; BMI 30.4
--- NOTE | 2025-05-21 07:08 | EDS_ITS ---
HPI History of Present Illness Chief Complaint: Seizure Detail of Chief Complaint: Seizure Informant: patient and parent Narrative Narrative: Patient presents to the emergency department after sustaining a seizure this morning. Patient states that he has history of seizures and currently on Keppra which he had increased recently to 750 mg twice a day. Patient states his seizures only happen at night. Initially started having seizures 3 years ago and was seeing a neurologist that has since moved down. Patient scheduled to see neurology again in 2 days. Patient denies recent illness. Denies falls or head injuries. Does complain of a headache but states often times will have a headache after seizure. Mother heard the patient in his room and when she checked on him he was having whole body tonic-clonic activity that lasted a couple of minutes. Patient did not lose control of bowel or bladder. [facility] Medical History (Updated 05/21/25 @ 10:[address] Enedina Hanna DO) Seizure Concussion Home Medications ?Medication ?Instructions ?Recorded ?Last Taken ?Type CPAP - Continuous Positive Airway 05/15/25 Unknown Hi story Pressure([facility] INFORMATIONAL USE ONLY) levetiracetam 1,000 mg tablet 1,000 mg PO BID #60 tabs 05/21/25 Unknown Rx (Keppra) levetiracetam 750 mg tablet 750 mg PO BID 05/21/25 Unk nown History (Keppra) Allergy/AdvReac Type Severity Reaction Status Date / Time Penicillins Allergy Rash Verified 05/21/25 06:43 Social History Smoking Status: Never smoker ROS ROS ED Review of Systems ROS Unobtainable: other Constitutional Constitutional ED: Reports lethargy; Denies chills, fever(s), sweats or weight loss Eyes Eyes: Denies blurry vision, change in vision or diplopia ENT ENT ED: Denies rhinorrhea or sore throat Cardiovascular Cardiovascular: Denies chest pain, orthopnea or racing heartbeat Respiratory/Chest Respiratory/Chest: Reports dyspnea on exertion; Denies cough, dyspnea, orthopnea or sputum Gastrointestinal Gastrointestinal: Denies abdominal pain, diarrhea, nausea or vomiting Genitourinary Genitourinary ED: Denies dysuria, hematuria or urinary frequency Musculoskeletal Musculoskeletal: Denies arthralgias, back pain, myalgias or neck pain Integumentary Denies abscess, Abrasions or rash Neurologic Neurologic: Reports headache(s) and other Details: Seizure ; Denies weakness Psychiatric Psychiatric: Denies anxiety, depression or suicidal thoughts Endocrine Endocrinology: Denies polydipsia, polyphagia or polyuria Hematologic/Lymphatic Hematologic/Lymphatic: Denies easy bleeding, easy bruising or lymphadenopathy Allergic/Immunologic Allergic/Immunologic ED: Denies mouth swelling, tongue swelling or urticaria EXAM Physical Exam Const Vital Signs: 05/21/25 06:38 05/21/25 08:38 05/21/25 10:00 Temperature 98.5 F Temperature Source Oral Pulse Rate 94 71 59 L Respiratory Rate 18 18 14 Blood Pressure 130/78 H 109/57 L 113/56 L Blood Pressure Mean 95 74 75 Pulse Ox 98 98 99 Oxygen Delivery Method Room Air Room Air Positive well nourished and well developed General Appearance ED: well developed and NAD HEENT Reports TM's clear and moist mucous membranes HEENT Narrative: Small bite wounds noted to the lateral aspect of the tongue on the right side. normocephalic and atraumatic; Negative for trauma or tenderness Tympanic Membrane ED: Yes TM's clear Eyes PERRL and EOMs intact bilaterally General Eye ED: Negative for pale conjunctiva or scleral icterus Neck no lymphadenopathy, supple and no JVD General: Negative for tenderness Chest Wall inspection of chest normal and palpation of chest normal Chest: Negative for tenderness Resp normal respiratory effort and clear to auscultation bilaterally Effort and Inspection: Negative for respiratory distress or pain with movement Auscultation: Negative for rhonchi, wheezes or diminished lung sounds Cardio regular rate, regular rhythm, S1 normal heart sound, S2 normal heart sound and no murmurs Peripheral Pulses: pulses 2+ throughout GI normal to inspection, nondistended, normoactive bowel sounds, soft to palpation, non-tender, non-distended and no masses Back/Spine no CVA tenderness and no thoracic nor lumbar tenderness Extremity normal to inspection General Extremety ED: Negative for edema General Extremity: Negative for edema Neuro oriented x3, CN's II-XII intact bilaterally, no sensory deficits noted and gait normal Sensorium / Orientation: awake, alert, oriented to person, oriented to place and oriented to time Motor Exam: strength 5/5 throughout and strength abnormal Psych mental status grossly normal Skin no rashes or lesions noted and no wounds MDM MDM MDM Narrative Medical decision making narrative: Patient presents with recurrent seizure currently on Keppra 750 twice daily. Clinically looks well. Does have bite wounds to his tongue. Scheduled to see neurology in [address] brain was obtained which was unremarkable. CBC with differential and chemistries were unremarkable. LFTs were normal. Discussed case with neurology Dr. Madison who recommended increasing patient's Keppra dose to 1000 mg twice a day. I did send off a Keppra level. Lab Data Attestation: I reviewed the patient's lab results. Labs: Laboratory Results - last 24 hr 05/21/25 06:53 WBC 7.3 RBC 5.15 Hgb 15.4 Hct 45.8 MCV 88.9 MCH 29.9 MCHC 33.6 RDW Std Deviation 40.6 RDW Coeff of Pepe 12.4 Plt Count 207 MPV 10.5 Immature Gran % (Auto) 0.400 Neut % (Auto) 63.2 Lymph % (Auto) 24.4 [place] % (Auto) 9.0 Eos % (Auto) 2.6 Baso % (Auto) 0.4 Absolute Neuts (auto) 4.6 Absolute Lymphs (auto) 1.79 Nucleated RBC % 0 Sodium 139 Potassium 4.2 Chloride 103 Carbon Dioxide 21.7 Anion Gap 14 BUN 14 Creatinine 1.12 Estim Creat Clear Calc 128.68 Est GFR (MDRD) Non-Af 96 BUN/Creatinine Ratio 12.1 Glucose 83 Calcium 9.6 Total Bilirubin 0.52 AST 31 ALT 32 Alkaline Phosphatase 103 Total Protein 7.5 Albumin 4.5 Globulin 3.0 Albumin/Globulin Ratio 1.5 Radiography Diagnostic Testing: Clinical Impression(s) from Imaging Studies Brain CT 05/21/25 07:25 IMPRESSION: NORMAL NONCONTRAST HEAD CT. Reading Location: [address] Discharge Plan Triage Chief Complaint: Seizure ED Provider: Enedina Hanna Dx/Rx/DC Orders Clinical Impression: Seizure Instructions: ED Seizure, Recurrent (Adult) Prescriptions: New levetiracetam [Keppra] 1,000 mg tablet 1,000 mg PO BID Qty: 60 0RF No Action (DME) CPAP - Continuous Positive Airway Pressure([facility] INFORMATIONAL USE ONLY) See Rx Instructions .ROUTE .MEDSUPPLY Rx Instructions: AUTOCPAP 5-15 CMH2O DME- DASCO MASK- RESPIRONICS DREAMWEAR NASAL MASK, LARGE FRAME, LARGE CUSHION levetiracetam [Keppra] 750 mg tablet 750 mg PO BID Primary Care Provider: Chantal Ball Referrals: Chantal Ball MD [Primary Care Provider, Family Practice] Jose Antonio Stafford MD [Non-Staff -Ordering Privileges, Neurology] - 2 Days Print Language: Polish Disposition Disposition: Home, Self Care
[2025-05-21 07:23] LABS: Hematocrit 45.8 % (40-54); Hemoglobin 15.4 g/dL (13.0-16.5); Immature Granulocytes Count 0.030 X10^3/uL (0.0-0.0); Mean Corp Hgb Conc 33.6 g/dL (32-36); Mean Corpuscular Volume 88.9 fL (80-94); Mean Platelet Vol. 10.5 fl (6.2-12.0); NRBC Flagged by Analyzer 0 % (0-5); Platelet Count 207 K/mm3 (150-450); RBC Distribution Width CV 12.4 % (11.6-14.6); RBC Distribution Width SD 40.6 fl (35.1-43.9); Red Blood Count 5.15 M/mm3 (4.6-6.2); White Blood Count 7.3 K/mm3 (4.4-11.0)
--- NOTE | 2025-05-21 07:25 | CT_ITS ---
PROCEDURE: BRAIN/HEAD WITHOUT CONTRAST 05/21/2025 REASON FOR EXAM: SEIZURE, HEADACHE TECHNIQUE: Procedure Code: CTBR Modality: CT Procedure: BRAIN/HEAD WITHOUT CONTRAST Coronal and Sagittal reconstruction series were provided. One or more dose reduction techniques were used (e.g., Automated exposure control, adjustment of the mA and/or kV according to patient size, use of iterative reconstruction technique. RADIATION DOSE SUMMARY: CTDlvol: 44.99 mGy DLP: 846.73 mGycm COMPARISON: Head CT of 04/25/2022. FINDINGS: Brain: Normal. No extra-axial fluid collection is seen. No orbital pathology is noted. CSF Spaces: Normal Sinuses/Mastoids: Clear at visualized levels Bones: No significant abnormality is evident. CT/Brain/Head without Contrast IMPRESSION: NORMAL NONCONTRAST HEAD CT. Reading Location: [address]
[2025-05-21 08:31] LABS: AST(SGOT) 31 U/L (<=37); Alanine Aminotransfer ALT/SGPT 32 U/L (<=46); Albumin, Serum 4.5 g/dL (3.5-5.0); Alkaline Phosphatase 103 U/L (40-129); Anion Gap 14 (5-15); BUN 14 mg/dL (4-19); BUN/Creat Ratio 12.1 RATIO (10-20); Calcium,Total 9.6 mg/dL (7.6-11.0); Carbon Dioxide 21.7 mmol/L (21.0-32.0); Chloride 103 mmol/L (98-108); Estimated Creatinine Clearance 128.68 ml/min (50-250); Globulin 3.0 g/dL (2.2-4.2); Glucose 83 mg/dL (70-99); Potassium 4.2 mmol/L (3.3-5.1)
[2025-05-21 08:38] VITALS: BP 109/57; PULSE 71; RESP 18; O2SAT 98
[2025-05-21 10:00] VITALS: BP 113/56; PULSE 59; RESP 14; O2SAT 99
[2025-05-21 10:43] VITALS: BP 107/28; PULSE 62; RESP 12; TEMP 36.6; O2SAT 99
[2025-05-24 09:08] LABS: KEPPRA (LEVETIRACETAM) 10.2 ug/mL (10.0-40.0)
== END 2025-05-21 10:44 | disposition home or self-care (01) ==
PROVIDERS: Emergency Provider Emergency Medicine; PCP Family Medicine; Visit Provider Emergency Medicine
DX: R56.9 Unspecified convulsions (principal); R51.9 Headache, unspecified; Z79.899 Other long term (current) drug therapy
CPT/HCPCS: 70450; 80053; 80177; 85025; 99284; A4216

== ENCOUNTER → 2025-06-24 | Outpatient (CLI) | payer BC, SELFPAY | END | disposition home or self-care (01) | LOC: SL 07:38 | PROVIDERS: PCP Family Medicine; Referring Provider Family Medicine; Visit Provider Family Medicine | DX: Z00.00 Encounter for general adult medical examination without abnormal findings (principal) ==

== ENCOUNTER → 2025-07-07 | Outpatient (CLI) | payer BC, SELFPAY ==
[2025-07-07 15:03] LABS: Hematocrit 46.5 % (40-54); Hemoglobin 15.4 g/dL (13.0-16.5); Immature Granulocytes Count 0.010 X10^3/uL (0.0-0.0); Mean Corp Hgb Conc 33.1 g/dL (32-36); Mean Corpuscular Volume 90.6 fL (80-94); Mean Platelet Vol. 10.5 fl (6.2-12.0); NRBC Flagged by Analyzer 0 % (0-5); Platelet Count 266 K/mm3 (150-450); RBC Distribution Width CV 12.4 % (11.6-14.6); RBC Distribution Width SD 41.1 fl (35.1-43.9); Red Blood Count 5.13 M/mm3 (4.6-6.2); White Blood Count 8.1 K/mm3 (4.4-11.0)
[2025-07-07 15:42] LABS: AST(SGOT) 26 U/L (<=37); Alanine Aminotransfer ALT/SGPT 17 U/L (<=46); Albumin, Serum 4.7 g/dL (3.5-5.0); Alkaline Phosphatase 109 U/L (40-129); Anion Gap 11 (5-15); BUN 16 mg/dL (4-19); BUN/Creat Ratio 15.2 RATIO (10-20); Calcium,Total 10.0 mg/dL (7.6-11.0); Carbon Dioxide 26.6 mmol/L (21.0-32.0); Chloride 104 mmol/L (98-108); Globulin 3.3 g/dL (2.2-4.2); Glucose 90 mg/dL (70-99); Potassium 4.4 mmol/L (3.3-5.1)
[2025-07-10 09:08] LABS: KEPPRA (LEVETIRACETAM) 16.7 ug/mL (10.0-40.0)
== END | disposition home or self-care (01) ==
LOC: MTLAB 13:37
PROVIDERS: PCP Family Medicine; Referring Provider Family Medicine; Visit Provider Family Medicine
DX: G40.909 Epilepsy, unspecified, not intractable, without status epilepticus (principal)
CPT/HCPCS: 36415; 80053; 80177; 84443; 85025